=== PATIENT | male | born 1940 | race Caucasian/White ===

== ENCOUNTER 2017-06-14 13:00 | Observation (INO) | payer OTHER ==
[~2017-06-14] VITALS: Ht 177.8 cm; Wt 115.8 kg
[~2017-06-14 13:00] MED LIST changes: -ACET325 PO; -ALBU90OI INH; -AZIT500 PO; -GUAI600T33 PO; -METO50ER PO; -ONDA4ODT MM; -XARELTO20 MG PO
[2017-06-14] MEDS ORDERED: METO50ER PO (20:00)
[2017-06-15 05:06] LABS: BASOPHILS ABSOLUTE AUTO 0.02 K/mm3 (0.00-0.23); BASOPHILS PERCENT AUTO 0 % (0-2); EOSINOPHILS ABSOLUTE AUTO 0.06 K/mm3 (0.00-0.68); EOSINOPHILS PERCENT AUTO 1 % (0-6); Hematocrit 41.4 % (37.0-53.0); Hemoglobin 13.2 g/dL (13.5-17.5); IMMATURE GRAN ABSOLUTE AUTO 0.02 K/mm3 (0.00-0.10); IMMATURE GRAN PERCENT AUTO 0 % (0-1); LYMPHOCYTES ABSOLUTE AUTO 2.55 K/mm3 (0.84-5.20); LYMPHOCYTES PERCENT AUTO 55 % (21-46); MONOCYTES ABSOLUTE AUTO 0.57 K/mm3 (0.16-1.47); MONOCYTES PERCENT AUTO 12 % (4-13); Mean Corpuscular HGB 28.6 pg (26.0-34.0); Mean Corpuscular HGB Conc 31.9 g/dL (31.5-36.5); Mean Corpuscular Volume 90 fL (80-100); Mean Platelet Volume 10.1 fL (9.1-12.4); NEUTROPHILS ABSOLUTE AUTO 1.38 K/mm3 (1.96-9.15); NEUTROPHILS PERCENT AUTO 30 % (41-73); Platelet Count 117 K/mm3 (150-400); RDW Coefficient Variation 14.6 % (11.7-14.2); RDW Standard Deviation 47.8 fL (35.1-46.3); Red Blood Cell Count 4.62 M/mm3 (4.30-5.90)
[2017-06-15 05:30] LABS: Anion Gap 6 mmol/L (6-16); Blood Urea Nitrogen 39 mg/dL (8-24); Bun/Creatinine Ratio 36.4 (12.0-20.0); CO2, Blood 27 mmol/L (21-32); Chloride, Blood 105 mmol/L (98-108); Creatinine, Blood 1.07 mg/dL (0.60-1.20); Glomerular Filtration Rate >60 (60-); Glucose, Blood 98 mg/dL (70-99); Potassium, Blood 3.6 mmol/L (3.5-5.5); Sodium, Blood 138 mmol/L (136-145)
[2017-06-15] MEDS ORDERED: ACET325 PO (08:47)
[2017-06-15] MEDS ORDERED: XARELTO20 MG PO (08:48)
[2017-06-15] MEDS ORDERED: AZIT500 PO (08:48)
[2017-06-15] MEDS ORDERED: ONDA4ODT MM (08:49)
[2017-06-15] MEDS ORDERED: ALBU90OI INH (08:49)
[2017-06-15] MEDS ORDERED: GUAI600T33 PO (08:49)
== END 2017-06-15 09:36 | disposition home or self-care (01) ==
LOC: ER 13:00 → MEDS 13:01 → ENPENDDIS 06-15 08:30 → MEDS 06-15 09:36
PROVIDERS: Hospitalist
DX: J18.9 Pneumonia, unspecified organism (principal); J40 Bronchitis, not specified as acute or chronic; I10 Essential (primary) hypertension; G47.33 Obstructive sleep apnea (adult) (pediatric); E78.5 Hyperlipidemia, unspecified; I48.91 Unspecified atrial fibrillation; N17.9 Acute kidney failure, unspecified; C83.00 Small cell B-cell lymphoma, unspecified site; R73.9 Hyperglycemia, unspecified; R55 Syncope and collapse; I95.9 Hypotension, unspecified; Z79.899 Other long term (current) drug therapy; Z99.89 Dependence on other enabling machines and devices; Z96.652 Presence of left artificial knee joint; Z98.890 Other specified postprocedural states; Z87.891 Personal history of nicotine dependence
CPT/HCPCS: 36415; 71046; 80048; 80053; 83605; 83880; 84145; 84484; 85025; 87040; 96361; 96365; 96375; 99285; G0378; J0456; J0696; J7030; J7050

== ENCOUNTER → 2017-06-14 | Outpatient (CLI) | payer OTHER ==
[~2017-06-14] MED LIST: ACET325 PO; ALBU90OI INH; ALLO300 PO; AZIT500 PO; CHOL10002 PO; DABI150C PO; ERYT.5TO BOTHEYES; GUAI600T33 PO; HYDCHL25 PO; METO50 PO; METO50ER PO; ONDA4ODT MM; SIMV10 PO; TAMS.4ER PO; VALS80 PO; XARELTO20 MG PO
[2017-06-14 10:21] LABS: BASOPHILS ABSOLUTE AUTO 0.02 K/mm3 (0.00-0.23); BASOPHILS PERCENT AUTO 0 % (0-2); EOSINOPHILS PERCENT AUTO 2 % (0-6); Hematocrit 45.8 % (37.0-53.0); Hemoglobin 14.9 g/dL (13.5-17.5); IMMATURE GRAN ABSOLUTE AUTO 0.03 K/mm3 (0.00-0.10); IMMATURE GRAN PERCENT AUTO 1 % (0-1); LYMPHOCYTES PERCENT AUTO 44 % (21-46); MONOCYTES ABSOLUTE AUTO 0.81 K/mm3 (0.16-1.47); MONOCYTES PERCENT AUTO 13 % (4-13); Mean Corpuscular HGB 28.8 pg (26.0-34.0); Mean Corpuscular HGB Conc 32.5 g/dL (31.5-36.5); Mean Corpuscular Volume 88 fL (80-100); Mean Platelet Volume 10.5 fL (9.1-12.4); NEUTROPHILS ABSOLUTE AUTO 2.66 K/mm3 (1.96-9.15); NEUTROPHILS PERCENT AUTO 41 % (41-73); Platelet Count 131 K/mm3 (150-400); RDW Coefficient Variation 14.6 % (11.7-14.2); RDW Standard Deviation 47.2 fL (35.1-46.3); Red Blood Cell Count 5.18 M/mm3 (4.30-5.90); White Blood Cell Count 6.42 K/mm3 (4.00-11.30)
[2017-06-14 10:35] LABS: Alanine Aminotransfer (ALT/SGP 36 U/L (12-78); Albumin/Globulin Ratio 0.6 (0.8-1.8); Alk Phos 111 U/L (40-126); Anion Gap 6 mmol/L (6-16); Aspartate Aminotrans (AST/SGOT 40 U/L (12-37); Bilirubin, Total 0.9 mg/dL (0.1-1.0); Blood Urea Nitrogen 51 mg/dL (8-24); Bun/Creatinine Ratio 28.8 (12.0-20.0); CO2, Blood 31 mmol/L (21-32); Calcium, Blood 8.8 mg/dL (8.5-10.1); Chloride, Blood 98 mmol/L (98-108); Creatinine, Blood 1.77 mg/dL (0.60-1.20); Globulin, Blood 4.8 g/dL (2.2-4.0); Glomerular Filtration Rate 38 (60-); Glucose, Blood 174 mg/dL (70-99); Potassium, Blood 3.6 mmol/L (3.5-5.5); Sodium, Blood 135 mmol/L (136-145); Total Protein, Blood 7.8 g/dL (6.4-8.2)
[2017-06-14 10:36] LABS: Troponin I <0.017 ng/mL (0.000-0.040)
== END | disposition home or self-care (01) ==
LOC: LAB EV 10:17
PROVIDERS: General Practice
DX: I95.1 Orthostatic hypotension (principal)
CPT/HCPCS: 80053; 84484; 85025

== ENCOUNTER 2018-04-22 11:53 | Day surgery (SDC) | payer OTHER ==
[~2018-04-22] VITALS: Ht 177.8 cm; Wt 117.4 kg
[~2018-04-22 11:53] MED LIST changes: +ACET325 PO; +ALBU90OI INH; +AZIT500 PO; +Aspir 8181 MG PO; +B Complex #11 EACH PO; +GUAI600T33 PO; +Hydrochlorothia25 MG PO; +IRBE150 PO; +METO100ER PO; +METO50ER PO; +ONDA4ODT MM; +SENN187 PO; +Simvastatin20 MG PO; +VITAMIN D34000 UNIT PO; +XARELTO20 MG PO
== END 2018-04-22 13:50 | disposition home or self-care (01) ==
LOC: ORSCSDS 11:53
PROVIDERS: Surgery
PROC: 0DJD8ZZ Inspection of Lower Intestinal Tract, Via Natural or Artificial Opening Endoscopic (ICD-10-PCS; principal; 2018-04-22 13:00)
DX: Z12.11 Encounter for screening for malignant neoplasm of colon (principal); Z86.010 Personal history of colon polyps; I10 Essential (primary) hypertension; Z87.891 Personal history of nicotine dependence; G47.33 Obstructive sleep apnea (adult) (pediatric); Z79.899 Other long term (current) drug therapy
CPT/HCPCS: J2405; J7120

== ENCOUNTER → 2018-12-22 | Outpatient (CLI) | payer OTHER | LOC: PLD 14:26 → LAB SHORT 14:26 | DX: C44.319 Basal cell carcinoma of skin of other parts of face (principal); C44.519 Basal cell carcinoma of skin of other part of trunk | CPT/HCPCS: 88305 ==

== ENCOUNTER 2021-03-18 03:37 | Emergency (ER) | payer OTHER ==
[~2021-03-18] VITALS: Ht 177.8 cm; Wt 108.9 kg
[2021-03-18 04:49] LABS: Source, Urine Catheter
[2021-03-18 04:51] LABS: Bilirubin, Urine Neg (Neg); Blood, Urine 3+ (Neg); Glucose Qualitative, Urine Neg (Neg); Ketones, Urine Neg (Neg); Leukocyte Esterase, Urine Neg (Neg); Nitrite, Urine Neg (Neg); Protein, Urine Neg (Neg); Specific Gravity, Urine 1.015 (1.003-1.022); Urobilinogen, Urine NORM (Normal)
[2021-03-18 04:54] LABS: Appearance, Urine Clear (Clear); Color, Urine Yellow (P-Yellow)
[2021-03-18 05:24] LABS: Bacteria Not Seen /hpf; Squamous Epithelial Cells Not Seen /hpf (Few); White Blood Cells, Urine Not Seen /hpf (0-5)
== END 2021-03-18 05:55 | disposition home or self-care (01) ==
LOC: ER 03:37
PROVIDERS: Student in an Organized Health Care Education/Training Program
DX: R33.9 Retention of urine, unspecified (principal); I48.91 Unspecified atrial fibrillation; Z79.899 Other long term (current) drug therapy; Z87.891 Personal history of nicotine dependence
CPT/HCPCS: 51702; 51798; 81001; 99283-25

== ENCOUNTER 2021-05-07 22:10 | Emergency (ER) | payer OTHER ==
[~2021-05-07] VITALS: Ht 177.8 cm; Wt 108.9 kg
[2021-05-07 22:48] LABS: Source, Urine Voided
[2021-05-07 22:56] LABS: Bilirubin, Urine Neg (Neg); Blood, Urine 4+ (Neg); Glucose Qualitative, Urine Neg (Neg); Ketones, Urine Neg (Neg); Leukocyte Esterase, Urine Neg (Neg); Nitrite, Urine Neg (Neg); Protein, Urine 2+ (Neg); Urobilinogen, Urine NORM (Normal)
[2021-05-07 23:45] LABS: Appearance, Urine Clear (Clear); Color, Urine Yellow (P-Yellow)
[2021-05-08 00:09] LABS: Bacteria Mod /hpf; Hyaline Casts 0-2 /lpf (0-2); Squamous Epithelial Cells Rare /hpf (Few); White Blood Cells, Urine 0-2 /hpf (0-5)
== END 2021-05-07 23:57 | disposition home or self-care (01) ==
LOC: ER 22:10
PROVIDERS: Emergency Medicine
DX: N40.1 Benign prostatic hyperplasia with lower urinary tract symptoms (principal); R33.8 Other retention of urine; I48.91 Unspecified atrial fibrillation; Z79.899 Other long term (current) drug therapy
CPT/HCPCS: 51702; 51798; 81001; 87086; 99283-25

== ENCOUNTER 2021-06-06 07:47 | Day surgery (SDC) | payer OTHER ==
[~2021-06-06] VITALS: Ht 177.8 cm; Wt 112.1 kg
[2021-06-06] MEDS ORDERED: FINA5 PO (08:14)
[2021-06-06] MEDS ORDERED: MAGCHL64ER (08:15)
== END 2021-06-06 09:41 | disposition home or self-care (01) ==
LOC: ORSCSDS 07:47
PROVIDERS: Ophthalmology
PROC: 08RJ3JZ Replacement of Right Lens with Synthetic Substitute, Percutaneous Approach (ICD-10-PCS; principal; 2021-06-06 09:00)
DX: H25.11 Age-related nuclear cataract, right eye (principal); H21.81 Floppy iris syndrome; I10 Essential (primary) hypertension; K21.9 Gastro-esophageal reflux disease without esophagitis; I48.91 Unspecified atrial fibrillation; Z79.899 Other long term (current) drug therapy; E66.9 Obesity, unspecified; Z68.35 Body mass index [BMI] 35.0-35.9, adult
CPT/HCPCS: J2001; J2250; J3010; J3301; J7040; V2632

== ENCOUNTER → 2022-10-05 | Outpatient (CLI) | payer OTHER ==
[~2022-10-05] MED LIST changes: +FINA5 PO; +MAGCHL64ER
[2022-10-08 11:35] LABS: Stool Occult Blood Guaiac 1 Pos (Neg); Stool Occult Blood Guaiac 2 Pos (Neg)
[2022-10-08 11:37] LABS: Stool Occult Blood Guaiac 3 Neg (Neg)
== END ==
LOC: LAB 02:00 → LAB SHORT 02:00
PROVIDERS: Internal Medicine
DX: E61.1 Iron deficiency (principal)
CPT/HCPCS: 82270

== ENCOUNTER 2024-05-13 02:41 | Day surgery (SDC) | payer OTHER ==
[2024-05-13] VITALS (7 sets, daily range): BP systolic 81–106; BP diastolic 35–61
[2024-05-13] MEDS ORDERED: NS 250 ML IV SCH (06:50)
== END 2024-05-13 17:40 | disposition home or self-care (01) ==
LOC: ATC 02:41 → EDSTATUS 13:30 → ATC 13:30 → LAB FUT 05-12 12:55
DX: D50.9 Iron deficiency anemia, unspecified (principal); C83.80 Other non-follicular lymphoma, unspecified site; I10 Essential (primary) hypertension; G47.30 Sleep apnea, unspecified; I48.91 Unspecified atrial fibrillation; E78.5 Hyperlipidemia, unspecified; Z87.891 Personal history of nicotine dependence; Z79.82 Long term (current) use of aspirin; Z79.899 Other long term (current) drug therapy
CPT/HCPCS: 36415; 86850; 86900; 86901; 86923; J7050; P9016

== ENCOUNTER 2024-05-23 23:54 | Inpatient (IN) | payer OTHER ==
[~2024-05-23] VITALS: Ht 177.8 cm; Wt 104.3 kg
[2024-05-24] MEDS ORDERED: NS 1,000 ML IV ONE (00:13)
[2024-05-24 00:28] LABS: Hematocrit 18.5 % (37.0-53.0); Mean Corpuscular HGB 32.1 pg (26.0-34.0); Mean Corpuscular HGB Conc 31.9 g/dL (31.5-36.5); Mean Corpuscular Volume 101 fL (80-100); Mean Platelet Volume 9.4 fL (9.1-12.4); NRBC ABSOLUTE 0.09 K/mm3 (0.00-0.02); NRBC Auto 2.9 /100 WBC (0.0-0.2); Platelet Count 77 K/mm3 (150-400); RDW Coefficient Variation 21.9 % (11.7-14.2); RDW Standard Deviation 77.5 fL (35.1-46.3); Red Blood Cell Count 1.84 M/mm3 (4.30-5.90); White Blood Cell Count 3.15 K/mm3 (4.00-11.30)
[2024-05-24 00:30] LABS: Hemoglobin 5.9 g/dL (13.5-17.5)
[2024-05-24 00:40] LABS: Alanine Aminotransfer (ALT/SGP 11 U/L (12-78); Albumin, Blood 2.8 g/dL (3.4-5.0); Albumin/Globulin Ratio 0.7 (0.8-1.8); Alk Phos 108 U/L (50-136); Anion Gap 17 mmol/L (3-11); Aspartate Aminotrans (AST/SGOT 14 U/L (12-37); Blood Urea Nitrogen 38 mg/dL (8-24); Bun/Creatinine Ratio 19.9 (12.0-20.0); CO2, Blood 21 mmol/L (21-32); Calcium, Blood 8.6 mg/dL (8.5-10.1); Chloride, Blood 99 mmol/L (98-108); Creatinine, Blood 1.91 mg/dL (0.60-1.20); Globulin, Blood 4.3 g/dL (2.2-4.0); Glomerular Filtration Rate 35 (60-); Glucose, Blood 217 mg/dL (70-99); Potassium, Blood 4.1 mmol/L (3.5-5.5); Sodium, Blood 133 mmol/L (136-145); Total Protein, Blood 7.1 g/dL (6.4-8.2)
[2024-05-24] MEDS ORDERED: NS 1,000 ML IV SCH (00:45)
[2024-05-24 00:47] LABS: BASOPHILS PERCENT MAN 0 % (0-2); BLASTS PERCENT MAN 4 % (0-0); EOSINOPHILS PERCENT MAN 0 % (0-6); LYMPHOCYTES % ATYPICAL MANUAL 1 % (0-0); LYMPHOCYTES ABSOLUTE MAN 2.07 K/mm3 (0.84-5.20); LYMPHOCYTES PERCENT MAN 65 % (21-46); MONOCYTES ABSOLUTE MAN 0.28 K/mm3 (0.16-1.47); MONOCYTES PERCENT MAN 9 % (4-13); MYELOCYTE ABSOLUTE MAN 0.03 K/mm3 (0.00-0.00); MYELOCYTE PERCENT MAN 1 % (0-0); NEUTROPHILS ABSOLUTE MAN 0.63 K/mm3 (1.96-9.15); SEG NEUTROPHILS PERCENT MAN 20 % (41-73); TOTAL CELLS COUNTED 100
[2024-05-24 01:05] LABS: Salicylate <1.7 mg/dL (2.8-20.0)
[2024-05-24 01:10] LABS: Acetaminophen, Random <2.0 ug/mL (10.0-30.0)
[2024-05-24 02:05] LABS: Base Excess Venous 0.6 mmol/L; Bicarbonate Venous 24.9 mmol/L (24.0-30.0); PCO2 Venous 34.1 mmHg (38-42); pH Blood Venous 7.46 (7.34-7.37)
[2024-05-24] MEDS ORDERED: Metoclopramide HCl 5MG / ML 2ML Vial IV PRN (02:30)
[2024-05-24] MEDS ORDERED: FLU VACC TS2024-25(6MOS UP)/PF 45 MCG/0.5 ML SYRINGE IM ONE (02:30)
[2024-05-24] MEDS ORDERED: Lactated Ringer's 1,000 ML IV SCH (02:30)
[2024-05-24 03:33] LABS: International Normalized Ratio 1.21; Prothrombin Time Results 12.8 Sec (9.7-11.5)
[2024-05-24 05:12] LABS: Hematocrit 18.2 % (37.0-53.0); Mean Corpuscular HGB 33.3 pg (26.0-34.0); Mean Corpuscular HGB Conc 32.4 g/dL (31.5-36.5); Mean Corpuscular Volume 103 fL (80-100); NRBC ABSOLUTE 0.08 K/mm3 (0.00-0.02); NRBC Auto 3.5 /100 WBC (0.0-0.2); Platelet Count 69 K/mm3 (150-400); RDW Coefficient Variation 21.3 % (11.7-14.2); RDW Standard Deviation 74.6 fL (35.1-46.3); Red Blood Cell Count 1.77 M/mm3 (4.30-5.90); White Blood Cell Count 2.31 K/mm3 (4.00-11.30)
[2024-05-24 05:47] LABS: Hemoglobin 5.9 g/dL (13.5-17.5)
[2024-05-24 05:53] LABS: Magnesium, Blood 2.4 mg/dL (1.6-2.4)
[2024-05-24 05:54] LABS: Albumin, Blood 2.7 g/dL (3.4-5.0); Albumin/Globulin Ratio 0.6 (0.8-1.8); Bilirubin, Total 0.9 mg/dL (0.1-1.0); Bun/Creatinine Ratio 19.5 (12.0-20.0); Calcium, Blood 8.1 mg/dL (8.5-10.1); Creatinine, Blood 1.9 mg/dL (0.60-1.20); Globulin, Blood 4.3 g/dL (2.2-4.0); Phosphorus, Blood 4.4 mg/dL (2.5-4.9); Potassium, Blood 3.8 mmol/L (3.5-5.5)
[2024-05-24 05:55] LABS: BASOPHILS ABSOLUTE MAN 0.04 K/mm3 (0.00-0.23); BASOPHILS PERCENT MAN 2 % (0-2); BLASTS PERCENT MAN 3 % (0-0); EOSINOPHILS ABSOLUTE MAN 0.02 K/mm3 (0.00-0.68); EOSINOPHILS PERCENT MAN 1 % (0-6); LYMPHOCYTES % ATYPICAL MANUAL 2 % (0-0); LYMPHOCYTES ABSOLUTE MAN 1.47 K/mm3 (0.84-5.20); LYMPHOCYTES PERCENT MAN 62 % (21-46); MONOCYTES ABSOLUTE MAN 0.09 K/mm3 (0.16-1.47); MONOCYTES PERCENT MAN 4 % (4-13); SEG NEUTROPHILS PERCENT MAN 26 % (41-73); TOTAL CELLS COUNTED 100
[2024-05-24] MEDS ORDERED: Pantoprazole Sodium 40 MG Injection IV SCH (06:00)
[2024-05-24 08:20] LABS: Source, Urine Clean Catch
[2024-05-24 08:24] LABS: Appearance, Urine Clear (Clear); Bilirubin, Urine Neg (Neg); Blood, Urine Neg (Neg); Color, Urine Yellow (P-Yellow); Glucose Qualitative, Urine 4+ (Neg); Ketones, Urine Neg (Neg); Leukocyte Esterase, Urine Neg (Neg); Nitrite, Urine Neg (Neg); Protein, Urine 2+ (Neg); Urobilinogen, Urine NORM (Normal)
[2024-05-24 08:43] LABS: Bacteria Few /hpf; Mucus Mod (0-Heavy); Red Blood Cells, Urine 0-2 /hpf (0-2); Squamous Epithelial Cells Rare /hpf (Few); White Blood Cells, Urine 0-2 /hpf (0-5)
[2024-05-24 08:43] LABS: Hematocrit 21.5 % (37.0-53.0); Mean Corpuscular HGB Conc 32.6 g/dL (31.5-36.5); Mean Platelet Volume 8.8 fL (9.1-12.4); NRBC ABSOLUTE 0.07 K/mm3 (0.00-0.02); NRBC Auto 4.1 /100 WBC (0.0-0.2); Platelet Count 60 K/mm3 (150-400); RDW Coefficient Variation 19.5 % (11.7-14.2); RDW Standard Deviation 65.2 fL (35.1-46.3); Red Blood Cell Count 2.19 M/mm3 (4.30-5.90)
[2024-05-24 08:48] LABS: Mean Corpuscular Volume 98 fL (80-100)
[2024-05-24 09:05] LABS: BASOPHILS PERCENT MAN 0 % (0-2); BLASTS PERCENT MAN 4 % (0-0); EOSINOPHILS PERCENT MAN 0 % (0-6); LYMPHOCYTES % ATYPICAL MANUAL 2 % (0-0); LYMPHOCYTES ABSOLUTE MAN 1.12 K/mm3 (0.84-5.20); LYMPHOCYTES PERCENT MAN 64 % (21-46); MONOCYTES PERCENT MAN 6 % (4-13); MYELOCYTE ABSOLUTE MAN 0.03 K/mm3 (0.00-0.00); MYELOCYTE PERCENT MAN 2 % (0-0); NEUTROPHILS ABSOLUTE MAN 0.37 K/mm3 (1.96-9.15); SEG NEUTROPHILS PERCENT MAN 22 % (41-73); TOTAL CELLS COUNTED 50
[2024-05-24] MEDS ORDERED: VENCLEXTA100 MG PO (12:35)
[2024-05-24] MEDS ORDERED: ACYCLOVIR400 MG PO (12:36)
[2024-05-24] MEDS ORDERED: FLUC100 PO (12:37)
[2024-05-24] MEDS ORDERED: LEVOFLOXACIN50011 PO (12:37)
[2024-05-24] MEDS ORDERED: TORS10 PO (12:39)
[2024-05-24] MEDS ORDERED: ELIQUIS5 M2 PO (12:41)
[2024-05-24] MEDS ORDERED: VALSARTAN160 MG PO (12:42)
[2024-05-24 15:46] VITALS: BP 99/47
[2024-05-24 16:08] LABS: Hematocrit 22.5 % (37.0-53.0); Hemoglobin 7.3 g/dL (13.5-17.5); Mean Corpuscular HGB 32.3 pg (26.0-34.0); Mean Corpuscular HGB Conc 32.4 g/dL (31.5-36.5); Mean Corpuscular Volume 100 fL (80-100); Mean Platelet Volume 9.2 fL (9.1-12.4); NRBC ABSOLUTE 0.07 K/mm3 (0.00-0.02); NRBC Auto 4.6 /100 WBC (0.0-0.2); Platelet Count 63 K/mm3 (150-400); RDW Coefficient Variation 20.2 % (11.7-14.2); Red Blood Cell Count 2.26 M/mm3 (4.30-5.90); White Blood Cell Count 1.51 K/mm3 (4.00-11.30)
[2024-05-24 18:10] LABS: Adenovirus Not Detected (NOT DETECT); Bordetella pertussis Not Detected (NOT DETECT); Chlamydophila pneumoniae Not Detected (NOT DETECT); Coronavirus 229E Not Detected (NOT DETECT); Coronavirus HKU1 Not Detected (NOT DETECT); Coronavirus NL63 Not Detected (NOT DETECT); Coronavirus OC43 Not Detected (NOT DETECT); Human Metapneumovirus Not Detected (NOT DETECT); Human Rhinovirus/Enterovirus Not Detected (NOT DETECT); Influenza A/2009-H1 Not Detected (NOT DETECT); Influenza A/H1 Not Detected (NOT DETECT); Influenza A/H3 Not Detected (NOT DETECT); Influenza B Not Detected (NOT DETECT); Mycoplasma pneumoniae Not Detected (NOT DETECT); Parainfluenza Virus 1 Not Detected (NOT DETECT); Parainfluenza Virus 2 Not Detected (NOT DETECT); Parainfluenza Virus 3 Not Detected (NOT DETECT); Parainfluenza Virus 4 Not Detected (NOT DETECT); Respiratory Syncytial Virus Not Detected (NOT DETECT); SARS-Cov-2 (COVID-19), BioFire Not Detected (NOT DETECT)
[2024-05-24 19:51] VITALS: BP 105/63
--- NOTE | 2024-05-24 23:24 | NUR ---
PT TORE A SMALL PIECE OF HIS TOENAIL ON HIS LEFT GREAT TOE. IT WAS BLEEDING AND THE PIECE OF TOENAIL DID NOT COME ALL THE WAY OFF. TOE WAS CLEANED AND BANDAGED WITH TWO BANDAIDS.
[2024-05-24 23:46] VITALS: BP 95/61
[2024-05-25] VITALS (12 sets, daily range): BP systolic 86–113; BP diastolic 42–72
--- NOTE | 2024-05-25 03:58 | NUR ---
SHIFT SUMMARY 83 YR M ADMITTED ON 05/24/24. FULL CODE. NO ACUTE CHANGES THIS SHIFT. PT IS A&O X 4 AND CALLS APPROPRIATELY FOR ASSISTANCE. NO REPORTS OF BLOODY STOOL THIS SHIFT. OF 2299 PT IS TO ONLY HAVE WATER AND ICE. HE WILL GO NPO AT 1300 TODAY (05/25/24) IN PREPARATION FOR EGD AND COLONOSCOPY TODAY. BOWEL PREP WILL START AT 0700. NO C/O DIZZINESS OR SYNCOPE. NO CHEST PAIN OR SOB. WILL CONTINUE TO MONITOR. BED IN LOW POSITION AND CALL LIGHT IN REACH.
[2024-05-25 05:22] LABS: Hematocrit 21.2 % (37.0-53.0); Mean Corpuscular HGB 32.6 pg (26.0-34.0); Mean Corpuscular Volume 99 fL (80-100); Mean Platelet Volume 9.6 fL (9.1-12.4); NRBC ABSOLUTE 0.06 K/mm3 (0.00-0.02); NRBC Auto 4.5 /100 WBC (0.0-0.2); Platelet Count 58 K/mm3 (150-400); RDW Standard Deviation 67.4 fL (35.1-46.3); Red Blood Cell Count 2.15 M/mm3 (4.30-5.90); White Blood Cell Count 1.34 K/mm3 (4.00-11.30)
[2024-05-25 06:41] LABS: Albumin, Blood 2.4 g/dL (3.4-5.0); Anion Gap 13 mmol/L (3-11); Blood Urea Nitrogen 30 mg/dL (8-24); CO2, Blood 23 mmol/L (21-32); Calcium, Blood 8.3 mg/dL (8.5-10.1); Chloride, Blood 104 mmol/L (98-108); Creatinine, Blood 1.43 mg/dL (0.60-1.20); Glomerular Filtration Rate 49 (60-); Glucose, Blood 109 mg/dL (70-99); Magnesium, Blood 2.1 mg/dL (1.6-2.4); Potassium, Blood 3.9 mmol/L (3.5-5.5); Sodium, Blood 136 mmol/L (136-145)
[2024-05-25] MEDS ORDERED: Sodium, Potassium,Mag Sulfates 354 ML PO ONE (07:00)
[2024-05-25 12:35] LABS: Hematocrit 23.1 % (37.0-53.0); Hemoglobin 7.6 g/dL (13.5-17.5); Mean Corpuscular HGB 32.9 pg (26.0-34.0); Mean Corpuscular HGB Conc 32.9 g/dL (31.5-36.5); Mean Corpuscular Volume 100 fL (80-100); Mean Platelet Volume 9.4 fL (9.1-12.4); NRBC ABSOLUTE 0.05 K/mm3 (0.00-0.02); NRBC Auto 3.9 /100 WBC (0.0-0.2); Platelet Count 66 K/mm3 (150-400); RDW Coefficient Variation 20.3 % (11.7-14.2); RDW Standard Deviation 70.1 fL (35.1-46.3); Red Blood Cell Count 2.31 M/mm3 (4.30-5.90); White Blood Cell Count 1.28 K/mm3 (4.00-11.30)
[2024-05-25] MEDS ORDERED: EPLE25 PO (13:49)
[2024-05-25] MEDS ORDERED: FARXIGA10 MG PO (13:51)
[2024-05-25] MEDS ORDERED: FURO20 PO (13:51)
[2024-05-25] MEDS ORDERED: Sanctura20 MG PO (13:52)
[2024-05-25] MEDS ORDERED: Lactated Ringer's 1,000 ML IV SCH (15:55)
--- NOTE | 2024-05-25 17:03 | NUR ---
PT TRANSPORTED TO DAY SURGERY AT APPROX 1450 BY DAY SURGERY RN. PT A&OX4, VSS, AMB TO THE [facility], AND DENIED PAIN.
--- NOTE | 2024-05-25 17:05 | NUR ---
PT TRANSPORTED TO DAY SURGERY FOR PROCEDURE BY DAY SURGERY RN AT APPROX 1650. PT A&OX4, VSS, AMB TO THE [facility], AND DENIED PAIN. UPDATED AT BEDSIDE.
--- NOTE | 2024-05-25 18:25 | NUR ---
SHIFT SUMMARY PT A&OX4, AMB W/ ASSIST, AND DENIED PAIN. PT COMPLETED COLON PREP AND HAD EGD AND SCOPE. NO BLACK TARRY BM'S THIS SHIFT. PT BP LOW AND IMPROVED PRIOR TO PROCEDURE. PT WAS ASYMPTOMATIC. NO OTHER ACUTE CHANGES.
[2024-05-25] MEDS ORDERED: propofoL 60 ML IV ONE (18:29)
--- NOTE | 2024-05-25 19:02 | NUR ---
PT STILL IN DAY SURGERY AT THIS TIME. REPORT GIVEN TO CAUSTIC CRESYLATE SHIFT SUPERINTENDENT KEMAR HUDSON.
[2024-05-25] MEDS ORDERED: Phenylephrine HCl 100 MCG/ML-NS 10MLSYR (1MG/10ML) ONE (20:45)
[2024-05-25] MEDS ORDERED: NS 500 ML IV SCH (22:30)
[2024-05-26] VITALS (14 sets, daily range): BP systolic 94–118; BP diastolic 58–77
--- NOTE | 2024-05-26 00:14 | NUR ---
05/26/24 0014 Miguel Oliver MAC WITH YASIR FRANZ; SEE ANESTHESIA RECORDS.
--- NOTE | 2024-05-26 03:43 | NUR ---
SHIFT SUMMARY A&OX4, RETURNED FROM ENDOSCOPY AT 2119. DENIES PAIN, BPS SOFT BUT WITH ADEQUATE MAPPS. bpS HAVE SINCE IMPROVED. SKIN PALE,WARM,DRY. RECEIVED PLATELET INFUSION PER NEW ORDER AND TOLERATED VERY WELL. IVF OF LR AT 150 ML/HR RESUMED AFTER PLATELET TRANSFUSION COMPLETED, REMAINS ON TELEMETRY AND HAS BEEN IN A FIB WITH HR UPPER 90s W/ BRIEF HR OF 15O PER TELETECH X1 OVERNIGHT-WAS ASYMPTOMATIC/SLEEPING. VOIDING, NO BM SINCE RETURN FROM ENDOSCOPY OF YET & NO S/SX OF ANY BLEEDING.
--- NOTE | 2024-05-26 13:54 | NUR ---
TELE NOTIFIED THIS RN OF TWO EVENTS WHERE PT'S HR WENT UP INTO THE 150'S. PT ASYMPTOMATIC DURING BOTH EVENTS. THIS RN NOTIFIED . PROVIDER TO REVIEW HOME MEDS.
[2024-05-26] MEDS ORDERED: Metoprolol Succinate 50 MG TABCR PO SCH (14:00)
[2024-05-26 15:31] LABS: Hematocrit 20.7 % (37.0-53.0); Hemoglobin 6.7 g/dL (13.5-17.5); Mean Corpuscular HGB 32.7 pg (26.0-34.0); Mean Corpuscular HGB Conc 32.4 g/dL (31.5-36.5); Mean Corpuscular Volume 101 fL (80-100); Mean Platelet Volume 9.8 fL (9.1-12.4); NRBC ABSOLUTE 0.06 K/mm3 (0.00-0.02); NRBC Auto 6.2 /100 WBC (0.0-0.2); Platelet Count 76 K/mm3 (150-400); RDW Coefficient Variation 19.8 % (11.7-14.2); RDW Standard Deviation 69.8 fL (35.1-46.3); Red Blood Cell Count 2.05 M/mm3 (4.30-5.90)
[2024-05-26 15:38] LABS: White Blood Cell Count 0.97 K/mm3 (4.00-11.30)
--- NOTE | 2024-05-26 18:00 | NUR ---
THIS RN NOTIFIED OF BLOOD IN PT'S STOOL. PT ACTIVELY RECEIVING BLOOD TRANSFUSION CURRENTLY AND HAD SCOPE YESTERDAY. NO NEW ORDERS AT THIS TIME.
--- NOTE | 2024-05-26 19:10 | NUR ---
SHIFT SUMMARY PT HAD CRITICAL WBC THIS SHIFT, AWARE, SEE PREVIOUS NOTE. HGB 7.6 AND 1 UNIT ACTIVELY INFUSING PER ORDER. PT HAD BLOODY STOOL X1, AND NOTIFIED. NO TELE EVENTS AFTER METOPROLOL ADMINISTRATION. NO OTHER ACUTE CHANGES. CALL LIGHT WITHIN REACH AND PT ABLE TO MAKE NEEDS KNOWN.
[2024-05-26 20:17] LABS: HEPARIN ANTI-XA UNRACTIONATED >1.00 U/mL (0.35-0.70)
[2024-05-26] MEDS ORDERED: Acyclovir 400 MG Tab PO SCH (21:00)
[2024-05-27] VITALS (7 sets, daily range): BP systolic 90–110; BP diastolic 56–69
--- NOTE | 2024-05-27 05:21 | NUR ---
AAOX4. X1 ASSIST. USES CALL LIGHT APPROPRITATELY. TELE IN PLACE, AFIB. RA. C/O SOB, REPO WITH HOB ELEVATED, VSS. ORDER TO DC IV FLUIDS AND MONITOR. NO ACUTE NEEDS REST OF NIGHT. AWAITING BIOPSY RESULTS.
[2024-05-27 06:56] LABS: Hematocrit 22.1 % (37.0-53.0); Hemoglobin 7.4 g/dL (13.5-17.5); Mean Corpuscular HGB 32.9 pg (26.0-34.0); Mean Corpuscular HGB Conc 33.5 g/dL (31.5-36.5); Mean Corpuscular Volume 98 fL (80-100); Mean Platelet Volume 9.7 fL (9.1-12.4); NRBC ABSOLUTE 0.05 K/mm3 (0.00-0.02); NRBC Auto 4.5 /100 WBC (0.0-0.2); Platelet Count 73 K/mm3 (150-400); RDW Coefficient Variation 19.9 % (11.7-14.2); RDW Standard Deviation 68.7 fL (35.1-46.3); Red Blood Cell Count 2.25 M/mm3 (4.30-5.90); White Blood Cell Count 1.12 K/mm3 (4.00-11.30)
[2024-05-27 07:24] LABS: Magnesium, Blood 1.9 mg/dL (1.6-2.4)
[2024-05-27 07:32] LABS: Albumin, Blood 2.4 g/dL (3.4-5.0); Anion Gap 10 mmol/L (3-11); Blood Urea Nitrogen 18 mg/dL (8-24); Bun/Creatinine Ratio 16.8 (12.0-20.0); CO2, Blood 26 mmol/L (21-32); Calcium, Blood 8.5 mg/dL (8.5-10.1); Chloride, Blood 104 mmol/L (98-108); Creatinine, Blood 1.07 mg/dL (0.60-1.20); Glomerular Filtration Rate 69 (60-); Glucose, Blood 125 mg/dL (70-99); Phosphorus, Blood 2.9 mg/dL (2.5-4.9); Potassium, Blood 3.8 mmol/L (3.5-5.5); Sodium, Blood 136 mmol/L (136-145)
[2024-05-27] MEDS ORDERED: Eplerenone 25 MG Tab PO SCH (09:00)
[2024-05-27] MEDS ORDERED: Losartan Potassium 50 MG Tab PO SCH (09:00)
[2024-05-27 14:41] LABS: Hematocrit 23.4 % (37.0-53.0); Hemoglobin 7.6 g/dL (13.5-17.5)
--- NOTE | 2024-05-27 17:59 | NUR ---
SHIFT SUMMARY PT CONT LEVEL OF CARE. PT NOTED TO BE A&O X4 AND SBA WITH FWW. PT CONT WITH NEUTROPENIC PRECAUTIONS. PT REMAINS ON TELE NOTED TO BE AFIB HR 89 WITH PVC. PT HGB NOTED TO INCREASE FROM 7.4 TO 7.6. PLAN IS MONITOR HGB, WBC, PLT CONT AND POSSIBLE DC IN 1-2DAYS.
--- NOTE | 2024-05-27 19:26 | NUR ---
TELEMETRY CALLED TO NOTIFY NURSE THAT PT HR DIPPED DOWN IN TO 40S BUT THEN WENT BACK UP TO 60S. VS TAKEN AND WNL PT NOTED TO BE ASYMPTOMATIC. PHYSICAN NOTIFIED WITH NO NEW ORDERS AT THIS TIME.
--- NOTE | 2024-05-28 04:43 | NUR ---
SHIFT SUMMARY PATIENT COMPLAINED EARLY IN SHIFT OF STOMACH DISCOMFORT. REGLAN WAS ADMINISTERED AND DISCOMFORT WAS RELIEVED. PATIENT SLEPT INTERMITTANTLY THROUGHOUT THE NIGHT. HE IS ORIENTED X 4 AND HAS HIS CALL LIGHT WITHIN REACH. HIS BED ALARM IS SET. SAFETY PRECAUTIONS ARE BEING MAINTAINED.
[2024-05-28 06:00] VITALS: BP 91/61
[2024-05-28 06:46] LABS: Hematocrit 21.9 % (37.0-53.0); Hemoglobin 7.1 g/dL (13.5-17.5); Mean Corpuscular HGB 32.3 pg (26.0-34.0); Mean Corpuscular HGB Conc 32.4 g/dL (31.5-36.5); Mean Corpuscular Volume 100 fL (80-100); Mean Platelet Volume 8.9 fL (9.1-12.4); NRBC ABSOLUTE 0.05 K/mm3 (0.00-0.02); NRBC Auto 3.8 /100 WBC (0.0-0.2); Platelet Count 70 K/mm3 (150-400); RDW Coefficient Variation 19.7 % (11.7-14.2); RDW Standard Deviation 67.8 fL (35.1-46.3); White Blood Cell Count 1.32 K/mm3 (4.00-11.30)
[2024-05-28 07:03] LABS: Albumin, Blood 2.3 g/dL (3.4-5.0); Anion Gap 9 mmol/L (3-11); Blood Urea Nitrogen 19 mg/dL (8-24); Bun/Creatinine Ratio 15.1 (12.0-20.0); CO2, Blood 28 mmol/L (21-32); Calcium, Blood 8.3 mg/dL (8.5-10.1); Chloride, Blood 104 mmol/L (98-108); Creatinine, Blood 1.26 mg/dL (0.60-1.20); Glomerular Filtration Rate 57 (60-); Glucose, Blood 111 mg/dL (70-99); Magnesium, Blood 1.9 mg/dL (1.6-2.4); Phosphorus, Blood 3.1 mg/dL (2.5-4.9); Potassium, Blood 3.7 mmol/L (3.5-5.5); Sodium, Blood 137 mmol/L (136-145)
[2024-05-28 08:36] VITALS: BP 107/69
[2024-05-28] MEDS ORDERED: ONDA4 PO (10:19)
[2024-05-28] MEDS ORDERED: Furosemide 20 MG Tab PO SCH (12:00)
[2024-05-28 15:16] VITALS: BP 104/60
--- NOTE | 2024-05-28 18:20 | NUR ---
PT AOX3-4 AND COOPERATIVE OF CARE. PT IS A STANDBY WITH WALKER AND WILL USE URINAL. PT RESTING THROUGHOUT THE DAY AND ABLE TO MAKE NEEDS KNOWN WILL CONTINUE TO MONITOR CALL LIGHT IN REACH.
[2024-05-28 20:00] VITALS: BP 106/59
[2024-05-29 01:00] VITALS: BP 105/64
--- NOTE | 2024-05-29 03:28 | NUR ---
CHURCH WORKER SUMMARY: PT ADMITTED FOR SYNCOPE. NEUTROPENIC PRECAUTIONS IN PLACE. S/P LE[place]EMIA TX AND LOW WBC'S. PT A&O X3-4, MILD DELAY WITH ANSWERS TO QUESTIONS. PT HAS INCREASED IN CONFUSION NIGHT HAS PROGRESSED. PT NOTED TO IMPULSIVELY GET OOB AND GO TO BATHROOM WITHOUT ASSISTANCE / CALL LIGHT USE. PT EDUCATED SHANK PIECE TACKER LIGHT USE AND BED ALARM PLACED. PT DENIES PAIN T/O SHIFT. VSS. INDEPENDENT WITH BED MOBILITY. CALL LIGHT IN REACH. BED IN LOWEST POSITION. CARES CONTINUE ORDERED.
[2024-05-29 03:56] VITALS: BP 98/53
[2024-05-29 05:27] LABS: Hematocrit 24.6 % (37.0-53.0); Hemoglobin 7.8 g/dL (13.5-17.5); Mean Corpuscular HGB Conc 31.7 g/dL (31.5-36.5); Mean Corpuscular Volume 101 fL (80-100); Mean Platelet Volume 9.5 fL (9.1-12.4); NRBC ABSOLUTE 0.07 K/mm3 (0.00-0.02); NRBC Auto 4.4 /100 WBC (0.0-0.2); Platelet Count 73 K/mm3 (150-400); RDW Coefficient Variation 19.6 % (11.7-14.2); RDW Standard Deviation 67.6 fL (35.1-46.3); Red Blood Cell Count 2.44 M/mm3 (4.30-5.90); White Blood Cell Count 1.58 K/mm3 (4.00-11.30)
[2024-05-29 06:18] LABS: Albumin, Blood 2.6 g/dL (3.4-5.0); Anion Gap 11 mmol/L (3-11); Blood Urea Nitrogen 21 mg/dL (8-24); Bun/Creatinine Ratio 16.7 (12.0-20.0); CO2, Blood 26 mmol/L (21-32); Calcium, Blood 8.7 mg/dL (8.5-10.1); Chloride, Blood 103 mmol/L (98-108); Creatinine, Blood 1.26 mg/dL (0.60-1.20); Glomerular Filtration Rate 57 (60-); Glucose, Blood 115 mg/dL (70-99); Magnesium, Blood 1.8 mg/dL (1.6-2.4); Phosphorus, Blood 3.6 mg/dL (2.5-4.9); Potassium, Blood 3.9 mmol/L (3.5-5.5); Sodium, Blood 136 mmol/L (136-145)
[2024-05-29 07:56] VITALS: BP 100/67
[2024-05-29] MEDS ORDERED: OMEP20ER PO (11:49)
--- NOTE | 2024-05-29 13:10 | NUR ---
PT DISCHARGED AT 1230 AOX4 AND COOPERATIVE OF CARE. REVIEWED WITH PT AND HIS PACKET AND EDUCATIONAL MATERIAL. ALL PERSONAL ITEMS COLLECTED AND TAKEN WITH PT. NO DISTRESS NOTED. PT TRANSPORTED OUT TO [facility] VIA WHEEL CHAIR.
== END 2024-05-29 12:17 | disposition home or self-care (01) | DRG 378 ==
LOC: ER 23:54 → ERHOLD 23:55 → MEDS 05-24 15:11 → ERHOLD 05-24 15:11 → MEDS 05-24 15:45
PROVIDERS: Emergency Medicine; Family Medicine; Internal Medicine; ADMIT Internal Medicine
PROC: 0DBL8ZX Excision of Transverse Colon, Via Natural or Artificial Opening Endoscopic, Diagnostic (ICD-10-PCS; 2024-05-23)
PROC: 30233N1 Transfusion of Nonautologous Red Blood Cells into Peripheral Vein, Percutaneous Approach (ICD-10-PCS; 2024-05-23)
PROC: 0W3P8ZZ Control Bleeding in Gastrointestinal Tract, Via Natural or Artificial Opening Endoscopic (ICD-10-PCS; principal; 2024-05-26)
PROC: 0DBM8ZZ Excision of Descending Colon, Via Natural or Artificial Opening Endoscopic (ICD-10-PCS; 2024-05-26)
PROC: 0DBL8ZZ Excision of Transverse Colon, Via Natural or Artificial Opening Endoscopic (ICD-10-PCS; 2024-05-26)
PROC: 0DBN8ZZ Excision of Sigmoid Colon, Via Natural or Artificial Opening Endoscopic (ICD-10-PCS; 2024-05-26)
DX: K31.811 Angiodysplasia of stomach and duodenum with bleeding (principal); C34.90 Malignant neoplasm of unspecified part of unspecified bronchus or lung; D62 Acute posthemorrhagic anemia; C95.90 Leukemia, unspecified not having achieved remission; N17.9 Acute kidney failure, unspecified; D61.818 Other pancytopenia; I48.20 Chronic atrial fibrillation, unspecified; E87.20 Acidosis, unspecified; G93.40 Encephalopathy, unspecified; C92.00 Acute myeloblastic leukemia, not having achieved remission; C83.00 Small cell B-cell lymphoma, unspecified site; Z96.659 Presence of unspecified artificial knee joint; E86.0 Dehydration; E11.9 Type 2 diabetes mellitus without complications; D70.9 Neutropenia, unspecified; K63.5 Polyp of colon; N18.30 Chronic kidney disease, stage 3 unspecified; I12.9 Hypertensive chronic kidney disease with stage 1 through stage 4 chronic kidney disease, or unspecified chronic kidney disease; K64.4 Residual hemorrhoidal skin tags; E75.5 Other lipid storage disorders; Z79.899 Other long term (current) drug therapy; Z87.19 Personal history of other diseases of the digestive system; Z87.891 Personal history of nicotine dependence; Z79.01 Long term (current) use of anticoagulants; Z51.11 Encounter for antineoplastic chemotherapy
CPT/HCPCS: 0202U; 36415; 36430; 70450; 71045; 71260; 74177; 80053; 80069; 81001; 82140; 82378; 82803; 82947; 83605; 83735; 84100; 85014; 85018; 85025; 85027; 85520; 85610; 85730; 86850; 86900; 86901; 86923; 88305; 93005; 93010; 96374; 99285-25; A9270; G0378; G0480; J2371; J2470; J2704; J2765; J7030; J7040; J7120; P9016; P9035; Q9967

== ENCOUNTER → 2024-05-30 | Outpatient (CLI) | payer OTHER ==
[~2024-05-30] MED LIST changes: +ACYCLOVIR400 MG PO; +ELIQUIS5 M2 PO; +EPLE25 PO; +FARXIGA10 MG PO; +FLUC100 PO; +FURO20 PO; +LEVOFLOXACIN50011 PO; +OMEP20ER PO; +ONDA4 PO; +Sanctura20 MG PO; +TORS10 PO; +VALSARTAN160 MG PO; +VENCLEXTA100 MG PO
[2024-05-30 14:44] LABS: Hematocrit 20.9 % (37.0-53.0); Hemoglobin 7.1 g/dL (13.5-17.5); Mean Corpuscular Volume 100 fL (80-100); Mean Platelet Volume 9.4 fL (9.1-12.4); NRBC ABSOLUTE 0.04 K/mm3 (0.00-0.02); NRBC Auto 3.3 /100 WBC (0.0-0.2); Platelet Count 65 K/mm3 (150-400); RDW Coefficient Variation 19.9 % (11.7-14.2); Red Blood Cell Count 2.09 M/mm3 (4.30-5.90); White Blood Cell Count 1.21 K/mm3 (4.00-11.30)
[2024-05-30 15:34] LABS: BASOPHILS PERCENT MAN 0 % (0-2); BLASTS PERCENT MAN 6 % (0-0); EOSINOPHILS ABSOLUTE MAN 0.02 K/mm3 (0.00-0.68); EOSINOPHILS PERCENT MAN 2 % (0-6); LYMPHOCYTES ABSOLUTE MAN 0.88 K/mm3 (0.84-5.20); LYMPHOCYTES PERCENT MAN 73 % (21-46); MONOCYTES ABSOLUTE MAN 0.02 K/mm3 (0.16-1.47); MONOCYTES PERCENT MAN 2 % (4-13); SEG NEUTROPHILS PERCENT MAN 17 % (41-73); TOTAL CELLS COUNTED 100
[2024-05-30 20:53] LABS: Albumin, Blood 2.3 g/dL (3.4-5.0); Albumin/Globulin Ratio 0.6 (0.8-1.8); Bilirubin, Total 1.4 mg/dL (0.1-1.0); Calcium, Blood 7.4 mg/dL (8.5-10.1); Creatinine, Blood 1.07 mg/dL (0.60-1.20); Globulin, Blood 3.8 g/dL (2.2-4.0); Potassium, Blood 3.6 mmol/L (3.5-5.5); Total Protein, Blood 6.1 g/dL (6.4-8.2)
== END ==
LOC: LAB 14:22 → LAB SHORT 14:22
PROVIDERS: Internal Medicine Hematology & Oncology
DX: C92.00 Acute myeloblastic leukemia, not having achieved remission (principal); C83.80 Other non-follicular lymphoma, unspecified site
CPT/HCPCS: 80053; 85025

== ENCOUNTER 2024-06-02 02:31 | Day surgery (SDC) | payer OTHER ==
[2024-06-02] VITALS (7 sets, daily range): BP systolic 68–112; BP diastolic 43–76
[2024-06-02] MEDS ORDERED: NS 250 ML IV SCH (06:55)
== END 2024-06-02 17:42 ==
LOC: ATC 02:31 → LAB FUT 05-19 14:00 → EDSTATUS 05-19 14:00
DX: C92.00 Acute myeloblastic leukemia, not having achieved remission (principal); C83.80 Other non-follicular lymphoma, unspecified site; I10 Essential (primary) hypertension; G47.30 Sleep apnea, unspecified; I48.91 Unspecified atrial fibrillation; E78.5 Hyperlipidemia, unspecified; Z87.891 Personal history of nicotine dependence; Z79.82 Long term (current) use of aspirin; Z79.899 Other long term (current) drug therapy
CPT/HCPCS: 36415; 36430; 86850; 86900; 86901; 86923; J7050; P9016

== ENCOUNTER 2024-07-07 04:07 | Day surgery (SDC) | payer OTHER ==
[2024-07-05 09:01] LABS: Hematocrit 22.1 % (37.0-53.0); Hemoglobin 7.4 g/dL (13.5-17.5); Mean Corpuscular HGB 31.9 pg (26.0-34.0); Mean Corpuscular HGB Conc 33.5 g/dL (31.5-36.5); Mean Corpuscular Volume 95 fL (80-100); Mean Platelet Volume 9.9 fL (9.1-12.4); Platelet Count 186 K/mm3 (150-400); RDW Coefficient Variation 18.5 % (11.7-14.2); RDW Standard Deviation 59.7 fL (35.1-46.3); Red Blood Cell Count 2.32 M/mm3 (4.30-5.90)
[2024-07-05 09:04] LABS: BASOPHILS PERCENT AUTO 0 % (0-2); EOSINOPHILS ABSOLUTE AUTO 0.02 K/mm3 (0.00-0.68); EOSINOPHILS PERCENT AUTO 2 % (0-6); IMMATURE GRAN PERCENT AUTO 0 % (0-1); LYMPHOCYTES ABSOLUTE AUTO 0.61 K/mm3 (0.84-5.20); LYMPHOCYTES PERCENT AUTO 66 % (21-46); MONOCYTES PERCENT AUTO 11 % (4-13); NEUTROPHILS PERCENT AUTO 21 % (41-73)
[2024-07-05 09:06] LABS: White Blood Cell Count 0.93 K/mm3 (4.00-11.30)
[2024-07-05 09:26] LABS: BASOPHILS PERCENT MAN 0 % (0-2); EOSINOPHILS ABSOLUTE MAN 0.03 K/mm3 (0.00-0.68); EOSINOPHILS PERCENT MAN 4 % (0-6); LYMPHOCYTES ABSOLUTE MAN 0.59 K/mm3 (0.84-5.20); LYMPHOCYTES PERCENT MAN 64 % (21-46); MONOCYTES ABSOLUTE MAN 0.07 K/mm3 (0.16-1.47); MONOCYTES PERCENT MAN 8 % (4-13); NEUTROPHILS ABSOLUTE MAN 0.22 K/mm3 (1.96-9.15); SEG NEUTROPHILS PERCENT MAN 24 % (41-73); TOTAL CELLS COUNTED 25
[2024-07-07] MEDS ORDERED: NS 250 ML IV SCH (06:55)
[2024-07-07 13:33] VITALS: BP 103/59
[2024-07-07 13:53] VITALS: BP 92/44
[2024-07-07 14:56] VITALS: BP 88/49
[2024-07-07 15:30] VITALS: BP 90/71
== END 2024-07-07 15:35 | disposition home or self-care (01) ==
LOC: ATC 04:07
PROVIDERS: Internal Medicine Hematology & Oncology
DX: C92.00 Acute myeloblastic leukemia, not having achieved remission (principal); C83.80 Other non-follicular lymphoma, unspecified site; I10 Essential (primary) hypertension; E78.5 Hyperlipidemia, unspecified; I48.91 Unspecified atrial fibrillation; G47.30 Sleep apnea, unspecified; Z87.891 Personal history of nicotine dependence; Z79.01 Long term (current) use of anticoagulants; Z79.899 Other long term (current) drug therapy
CPT/HCPCS: 36415; 36430; 85025; 86850; 86900; 86901; 86923; J7050; P9016

== ENCOUNTER 2024-07-14 02:10 | Day surgery (SDC) | payer OTHER ==
[2024-07-14] MEDS ORDERED: NS 250 ML IV SCH (06:50)
[2024-07-14 13:44] VITALS: BP 104/66
[2024-07-14 14:04] VITALS: BP 90/48
[2024-07-14 15:05] VITALS: BP 96/45
[2024-07-14 15:25] VITALS: BP 96/45
[2024-07-14 15:50] VITALS: BP 91/51
[2024-07-14 16:51] VITALS: BP 96/53
== END 2024-07-14 17:15 | disposition home or self-care (01) ==
LOC: ATC 02:10
DX: C92.00 Acute myeloblastic leukemia, not having achieved remission (principal); C83.80 Other non-follicular lymphoma, unspecified site; I10 Essential (primary) hypertension; G47.30 Sleep apnea, unspecified; I48.91 Unspecified atrial fibrillation; E78.5 Hyperlipidemia, unspecified; Z87.891 Personal history of nicotine dependence; Z79.01 Long term (current) use of anticoagulants; Z79.84 Long term (current) use of oral hypoglycemic drugs; Z79.899 Other long term (current) drug therapy
CPT/HCPCS: 36430; 86850; 86900; 86901; 86923; J7050; P9016

== ENCOUNTER 2024-09-02 00:06 | Day surgery (SDC) | payer OTHER ==
[2024-09-02] MEDS ORDERED: NS 250 ML IV SCH (07:10)
[2024-09-02 13:29] VITALS: BP 99/60
[2024-09-02 13:48] VITALS: BP 101/59
[2024-09-02 14:49] VITALS: BP 102/53
[2024-09-02 15:29] VITALS: BP 99/50
[2024-09-02 16:30] VITALS: BP 111/57
== END 2024-09-02 16:53 | disposition home or self-care (01) ==
LOC: ATC 00:06
DX: C92.00 Acute myeloblastic leukemia, not having achieved remission (principal); C83.80 Other non-follicular lymphoma, unspecified site; E78.5 Hyperlipidemia, unspecified; I49.1 Atrial premature depolarization; I10 Essential (primary) hypertension; Z79.899 Other long term (current) drug therapy
CPT/HCPCS: 36415; 36430; 86850; 86900; 86901; 86923; J7050; P9016

== ENCOUNTER 2024-10-07 01:32 | Day surgery (SDC) | payer OTHER ==
[2024-10-07] VITALS (7 sets, daily range): BP systolic 95–112; BP diastolic 50–81
[2024-10-07] MEDS ORDERED: NS 250 ML IV SCH (07:05)
== END 2024-10-07 23:00 | disposition home or self-care (01) ==
LOC: ATC 01:32
DX: C92.00 Acute myeloblastic leukemia, not having achieved remission (principal); C83.80 Other non-follicular lymphoma, unspecified site; I10 Essential (primary) hypertension; G47.30 Sleep apnea, unspecified; I48.91 Unspecified atrial fibrillation; E78.5 Hyperlipidemia, unspecified; Z87.891 Personal history of nicotine dependence; Z79.01 Long term (current) use of anticoagulants; Z79.899 Other long term (current) drug therapy
CPT/HCPCS: 36415; 36430; 86850; 86900; 86901; 86923; J7050; P9016

== ENCOUNTER → 2024-10-20 | Outpatient (CLI) | payer OTHER ==
[2024-10-20 12:07] LABS: Hematocrit 23.0 % (37.0-53.0); Hemoglobin 7.7 g/dL (13.5-17.5); Mean Corpuscular HGB Conc 33.5 g/dL (31.5-36.5); Mean Corpuscular Volume 99 fL (80-100); NRBC ABSOLUTE 0.03 K/mm3 (0.00-0.02); NRBC Auto 2.1 /100 WBC (0.0-0.2); Platelet Count 226 K/mm3 (150-400); RDW Coefficient Variation 20.2 % (11.7-14.2); RDW Standard Deviation 71.6 fL (35.1-46.3)
[2024-10-20 12:26] LABS: Alanine Aminotransfer (ALT/SGP 10.0 U/L (12-78); Albumin, Blood 2.6 g/dL (3.4-5.0); Albumin/Globulin Ratio 0.6 (0.8-1.8); Anion Gap 7.0 mmol/L (3-11); Aspartate Aminotrans (AST/SGOT 19.0 U/L (12-37); Bilirubin, Total 1.5 mg/dL (0.1-1.0); Blood Urea Nitrogen 28.0 mg/dL (8-24); CO2, Blood 30.0 mmol/L (21-32); Calcium, Blood 9.1 mg/dL (8.5-10.1); Chloride, Blood 99.0 mmol/L (98-108); Creatinine, Blood 0.86 mg/dL (0.60-1.20); Globulin, Blood 4.3 g/dL (2.2-4.0); Glucose, Blood 137.0 mg/dL (70-99); Potassium, Blood 4.0 mmol/L (3.5-5.5); Sodium, Blood 132.0 mmol/L (136-145); Total Protein, Blood 6.9 g/dL (6.4-8.2)
[2024-10-20 14:18] LABS: BAND PERCENT MAN 12 % (0-8); BASOPHILS ABSOLUTE MAN 0.00 K/mm3 (0.00-0.23); BASOPHILS PERCENT MAN 0 % (0-2); EOSINOPHILS ABSOLUTE MAN 0.05 K/mm3 (0.00-0.68); EOSINOPHILS PERCENT MAN 4 % (0-6); LYMPHOCYTES ABSOLUTE MAN 0.28 K/mm3 (0.84-5.20); LYMPHOCYTES PERCENT MAN 20 % (21-46); MONOCYTES ABSOLUTE MAN 0.16 K/mm3 (0.16-1.47); MONOCYTES PERCENT MAN 12 % (4-13); NEUTROPHILS ABSOLUTE MAN 0.89 K/mm3 (1.96-9.15); SEG NEUTROPHILS PERCENT MAN 52 % (41-73)
== END ==
LOC: LAB 12:02 → LAB SHORT 12:02
PROVIDERS: Nurse Practitioner
DX: C92.00 Acute myeloblastic leukemia, not having achieved remission (principal); C83.80 Other non-follicular lymphoma, unspecified site
CPT/HCPCS: 80053; 85025

== ENCOUNTER 2024-11-01 18:41 | Inpatient (IN) | payer OTHER ==
[~2024-11-01] VITALS: Ht 177.8 cm; Wt 87.2 kg
[2024-11-01] MEDS ORDERED: Diltiazem HCl 5 MG / ML 5ML Vial IV ONE ×2 (19:05→20:25)
[2024-11-01] MEDS ORDERED: NS 1,000 ML IV SCH (19:05)
[2024-11-01 19:56] LABS: Hematocrit 23.6 % (37.0-53.0); Hemoglobin 7.7 g/dL (13.5-17.5); Mean Corpuscular HGB Conc 32.6 g/dL (31.5-36.5); Mean Corpuscular Volume 102 fL (80-100); NRBC ABSOLUTE 0.10 K/mm3 (0.00-0.02); NRBC Auto 20.8 /100 WBC (0.0-0.2); Platelet Count 102 K/mm3 (150-400); RDW Coefficient Variation 21.6 % (11.7-14.2); RDW Standard Deviation 75.7 fL (35.1-46.3)
[2024-11-01 19:57] LABS: BASOPHILS ABSOLUTE AUTO 0.01 K/mm3 (0.00-0.23); BASOPHILS PERCENT AUTO 2 % (0-2); EOSINOPHILS ABSOLUTE AUTO 0.00 K/mm3 (0.00-0.68); EOSINOPHILS PERCENT AUTO 0 % (0-6); IMMATURE GRAN ABSOLUTE AUTO 0.02 K/mm3 (0.00-0.10); IMMATURE GRAN PERCENT AUTO 4 % (0-1); LYMPHOCYTES ABSOLUTE AUTO 0.26 K/mm3 (0.84-5.20); LYMPHOCYTES PERCENT AUTO 54 % (21-46); MONOCYTES ABSOLUTE AUTO 0.06 K/mm3 (0.16-1.47); MONOCYTES PERCENT AUTO 13 % (4-13); NEUTROPHILS ABSOLUTE AUTO 0.13 K/mm3 (1.96-9.15); NEUTROPHILS PERCENT AUTO 27 % (41-73)
[2024-11-01 20:14] LABS: Anion Gap 15.0 mmol/L (3-11); Blood Urea Nitrogen 22.0 mg/dL (8-24); CO2, Blood 23.0 mmol/L (21-32); Calcium, Blood 8.4 mg/dL (8.5-10.1); Chloride, Blood 99.0 mmol/L (98-108); Creatinine, Blood 0.7 mg/dL (0.60-1.20); Glucose, Blood 110.0 mg/dL (70-99); Magnesium, Blood 1.6 mg/dL (1.6-2.4); Potassium, Blood 3.7 mmol/L (3.5-5.5); Sodium, Blood 133.0 mmol/L (136-145); Thyroid Stimulating Hormone 5.68 uIU/mL (0.360-4.800)
[2024-11-01 20:28] LABS: Source, Urine Clean Catch
[2024-11-01 20:30] LABS: Bilirubin, Urine Neg (Neg); Color, Urine Yellow (P-Yellow); Glucose Qualitative, Urine 4+ (Neg); Ketones, Urine 4+ (Neg); Leukocyte Esterase, Urine Neg (Neg); Protein, Urine 1+ (Neg); Specific Gravity, Urine 1.015 (1.003-1.022); Urobilinogen, Urine 1+ (Normal)
[2024-11-01] MEDS ORDERED: Ondansetron HCl 2 MG / ML 2ML Vial IV PRN (23:00)
[2024-11-01] MEDS ORDERED: Magnesium Sulf 2 GM/Water 50ML 50 ML IV ONE (23:05)
[2024-11-02] VITALS (12 sets, daily range): BP systolic 88–120; BP diastolic 46–88
[2024-11-02] MEDS ORDERED: Cefepime HCl 2,000 MG in NS 100 ML IV SCH (02:43)
--- NOTE | 2024-11-02 07:14 | NUR ---
PT ARRIVED TO FLOOR FROM ED. VSS STABLE ON ROOM AIR. BED ALARM ON. BED LOCKED AND IN LOWEST POSITION. HEART RATE REMAINED STABLE DURING SHIFT. CARDIZEM NOT STARTED DUE TO PT'S HEART RATE BEING STABLE.
[2024-11-02] MEDS ORDERED: Polyethylene Glycol 3350 17 gm PO PRN (07:45)
[2024-11-02 07:48] LABS: Hematocrit 19.6 % (37.0-53.0); Hemoglobin 6.4 g/dL (13.5-17.5); Mean Corpuscular HGB Conc 32.7 g/dL (31.5-36.5); Mean Corpuscular Volume 102 fL (80-100); NRBC ABSOLUTE 0.06 K/mm3 (0.00-0.02); NRBC Auto 10.5 /100 WBC (0.0-0.2); Platelet Count 86 K/mm3 (150-400); RDW Coefficient Variation 21.9 % (11.7-14.2); RDW Standard Deviation 75.6 fL (35.1-46.3)
[2024-11-02] MEDS ORDERED: ELIQUIS5 M2 PO (08:04)
[2024-11-02] MEDS ORDERED: LEVFLO500 PO (08:05)
[2024-11-02] MEDS ORDERED: FARXIGA10 MG PO (08:06)
[2024-11-02 08:11] LABS: BASOPHILS ABSOLUTE MAN 0.02 K/mm3 (0.00-0.23); BASOPHILS PERCENT MAN 4 % (0-2); EOSINOPHILS ABSOLUTE MAN 0.02 K/mm3 (0.00-0.68); EOSINOPHILS PERCENT MAN 4 % (0-6); LYMPHOCYTES ABSOLUTE MAN 0.43 K/mm3 (0.84-5.20); LYMPHOCYTES PERCENT MAN 76 % (21-46); MONOCYTES ABSOLUTE MAN 0.06 K/mm3 (0.16-1.47); MONOCYTES PERCENT MAN 12 % (4-13); NEUTROPHILS ABSOLUTE MAN 0.02 K/mm3 (1.96-9.15); SEG NEUTROPHILS PERCENT MAN 4 % (41-73)
[2024-11-02 08:20] LABS: Alanine Aminotransfer (ALT/SGP 9.0 U/L (12-78); Albumin, Blood 2.1 g/dL (3.4-5.0); Albumin/Globulin Ratio 0.6 (0.8-1.8); Anion Gap 12.0 mmol/L (3-11); Aspartate Aminotrans (AST/SGOT 12.0 U/L (12-37); Bilirubin, Total 1.3 mg/dL (0.1-1.0); Blood Urea Nitrogen 19.0 mg/dL (8-24); CO2, Blood 24.0 mmol/L (21-32); Calcium, Blood 7.4 mg/dL (8.5-10.1); Chloride, Blood 102.0 mmol/L (98-108); Creatinine, Blood 0.79 mg/dL (0.60-1.20); Globulin, Blood 3.8 g/dL (2.2-4.0); Glucose, Blood 103.0 mg/dL (70-99); Magnesium, Blood 1.8 mg/dL (1.6-2.4); Potassium, Blood 3.7 mmol/L (3.5-5.5); Sodium, Blood 134.0 mmol/L (136-145); Total Protein, Blood 5.9 g/dL (6.4-8.2)
[2024-11-02] MEDS ORDERED: Lactobacil 2-S.Thermo-Bifido 1 1 Cap PO SCH (09:00)
[2024-11-02] MEDS ORDERED: Enoxaparin 40 MG/0.4 ML SYR SC SCH (09:00)
--- NOTE | 2024-11-02 13:34 | NUR ---
SHIFT NOTE: PATIENT IS STILL A/O X 3 ABLE TO MAKE NEEDS KNOWN, HOWEVER IS A POOR HISTORIAN, DEFERS TO FOR MOST HISTORY AND COMPLEX DECISIONS, BLADDERS SCAN AT 158, DIMINISHED URINE OUTPUT VOIDING FREQUENT 50-75mL AT A TIME, DENIES DISCOMFORT, DENEIS CHEST PAIN PRESSURE OR SOB AT REST. DYSPNIC WITH EXERTION, HR UPTO THE 130'S WITH MINIMAL EXERTION. RECOVERS AND HR 90-110'S AT REST. PATIENT HAS WORKED WITH PT/OT/ST, CASE MANAGEMENT AND PALLIATIVE CARE HAVE NOW SEEN. ADDITIONALLY, DR. OWENS ROUNDED AND ORDERED MEDS AND RBC'S. PINK TOP DRAWN AWAITING RESULTS. AT BEDSIDE FOR ALL OF THIS AND EDUCATED ON PLAN OF CARE WELL PATIENT. NO ACUTE CONCERNS. DECREASED APPETITE NOTED.
[2024-11-02] MEDS ORDERED: NS 500 ML IV SCH (15:10)
--- NOTE | 2024-11-02 15:13 | NUR ---
MET WITH PATIENT AND SPOUSE. DISCUSSED CODE STATUS. COMPLETED A POLST WITH PATIENT AND . AFTER REVIEWING OPTIONS THEY SELECTED DNR AND COMFORT. WE DISCUSSED HOSPICE. THEY RELAYED THAT DR. OWENS HAD BEEN IN EARLIER AND GAVE THAT AN OPTION, THEY WOULD LIKE THE OPPORTUNITY TO DISCUSS WITH FAMILY BEFORE THEY MAKE ANY DECISION ON THAT.
[2024-11-02] MEDS ORDERED: Docusate Sodium/Senna 1 Tab PO SCH (21:00)
[2024-11-03] VITALS (14 sets, daily range): BP systolic 87–128; BP diastolic 51–78
[2024-11-03 03:45] LABS: Hematocrit 23.0 % (37.0-53.0); Hemoglobin 7.8 g/dL (13.5-17.5); Mean Corpuscular HGB Conc 33.9 g/dL (31.5-36.5); NRBC ABSOLUTE 0.08 K/mm3 (0.00-0.02); NRBC Auto 20.5 /100 WBC (0.0-0.2); Platelet Count 70 K/mm3 (150-400); RDW Coefficient Variation 21.2 % (11.7-14.2); RDW Standard Deviation 68.1 fL (35.1-46.3)
[2024-11-03 03:49] LABS: Mean Corpuscular Volume 97 fL (80-100)
[2024-11-03 04:25] LABS: BASOPHILS ABSOLUTE MAN 0.00 K/mm3 (0.00-0.23); BASOPHILS PERCENT MAN 0 % (0-2); EOSINOPHILS ABSOLUTE MAN 0.00 K/mm3 (0.00-0.68); EOSINOPHILS PERCENT MAN 0 % (0-6); LYMPHOCYTES ABSOLUTE MAN 0.39 K/mm3 (0.84-5.20); LYMPHOCYTES PERCENT MAN 100 % (21-46); MONOCYTES ABSOLUTE MAN 0.00 K/mm3 (0.16-1.47); MONOCYTES PERCENT MAN 0 % (4-13)
--- NOTE | 2024-11-03 06:23 | NUR ---
PT HAS BEEN RESTLESS THROUGHOUT THE NIGHT. PT HAS BEEN VERY IMPULSIVE D/T URGENCY TO VOID. PT PULLED OUT RIGHT IV ACCESS BECAUSE "IT FELT LIKE THE RIGHT THING TO DO AT THE TIME." IV ACCESS WAS REPLACED IN RIGHT FOREARM. PT WAS VERY APOLOGETIC. BED LINEN AND GOWN WERE CHANGED. VITAL SIGNS HAVE BEEN STABLE THROUGH THE NIGHT. BED IS LOCKED AND IN LOWEST POSITION. BED ALARM IS ACTIVATED.
[2024-11-03 06:54] LABS: Albumin, Blood 1.9 g/dL (3.4-5.0); Anion Gap 9 mmol/L (3-11); Blood Urea Nitrogen 19 mg/dL (8-24); CO2, Blood 24 mmol/L (21-32); Calcium, Blood 7.6 mg/dL (8.5-10.1); Chloride, Blood 104 mmol/L (98-108); Creatinine, Blood 0.71 mg/dL (0.60-1.20); Glucose, Blood 137 mg/dL (70-99); Magnesium, Blood 1.7 mg/dL (1.6-2.4); Phosphorus, Blood 2.7 mg/dL (2.5-4.9); Potassium, Blood 3.5 mmol/L (3.5-5.5); Sodium, Blood 133 mmol/L (136-145)
[2024-11-03] MEDS ORDERED: Mag Sulfate 1 GM/D5% 100ML 100 ML IV STA (08:10)
--- NOTE | 2024-11-03 16:26 | NUR ---
CASE CONFRENCE WITH CARE COORDINATION. PATIENTS WAS NOT AT BEDSIDE AT THIS TIME. WILL FOLLOW UP TOMORROW
[2024-11-03 18:36] LABS: Hematocrit 26.1 % (37.0-53.0); Hemoglobin 8.5 g/dL (13.5-17.5)
--- NOTE | 2024-11-03 18:46 | NUR ---
EOS: NO SIGNIFICANT CHANGES T/O THE SHIFT PATIENT STIL IS A/O X 2-3 MOSTLY IMPULSIVE BUT CAN USE THE CALL LIGHT OR YELLS OUT AT TIMES FOR HELP. PATIENT DENIES CHEST PAIN PRESSURE OR SOB AT REST. VERY SOB WITH EXERTION OF ANY KIND AND HR REFLECTS THIS RESTING A LO2 90'S WITH EXERTION HR INTO THE 130'S. A SINGULAR EPISODE OF RVR 150 FOR ABOUT A COUPLE OF SECONDS WHILE IN THE ROOM ASYMPTOMATIC. PATIENT HAS BEEN COOPERATIVE MOST OF THE TIME, DIFFIFCULTY WITH URINAL/HAT. PATIENT AT BEDSIDE MOST OF THE SHIFT. ECHO ORDERED BY HOSPITALIST KRYSTLE IN [facility] THIS EVENING IMPROVED. PATIENT WITH VERY DECREASED APPETITE EATING MAINLY THE LIQUIDS ON TRAY. PLAN OF CARE CONTINUES, NO FURTHER ACUTE CONCERNS.
[2024-11-04 03:20] VITALS: BP 110/85
[2024-11-04 04:12] LABS: Hematocrit 24.5 % (37.0-53.0); Hemoglobin 8.4 g/dL (13.5-17.5); Mean Corpuscular HGB Conc 34.3 g/dL (31.5-36.5); Mean Corpuscular Volume 98 fL (80-100); NRBC ABSOLUTE 0.05 K/mm3 (0.00-0.02); NRBC Auto 8.3 /100 WBC (0.0-0.2); Platelet Count 68 K/mm3 (150-400); RDW Coefficient Variation 21.2 % (11.7-14.2); RDW Standard Deviation 70.1 fL (35.1-46.3)
[2024-11-04 04:32] LABS: Alanine Aminotransfer (ALT/SGP 10.0 U/L (12-78); Albumin, Blood 2.1 g/dL (3.4-5.0); Albumin/Globulin Ratio 0.5 (0.8-1.8); Anion Gap 7.0 mmol/L (3-11); Aspartate Aminotrans (AST/SGOT 14.0 U/L (12-37); Bilirubin, Total 1.2 mg/dL (0.1-1.0); Blood Urea Nitrogen 17.0 mg/dL (8-24); CO2, Blood 26.0 mmol/L (21-32); Calcium, Blood 8.3 mg/dL (8.5-10.1); Chloride, Blood 106.0 mmol/L (98-108); Creatinine, Blood 0.69 mg/dL (0.60-1.20); Globulin, Blood 3.9 g/dL (2.2-4.0); Glucose, Blood 127.0 mg/dL (70-99); Magnesium, Blood 1.8 mg/dL (1.6-2.4); Potassium, Blood 3.9 mmol/L (3.5-5.5); Sodium, Blood 135.0 mmol/L (136-145); Total Protein, Blood 6.0 g/dL (6.4-8.2)
[2024-11-04 05:00] LABS: BASOPHILS ABSOLUTE MAN 0.00 K/mm3 (0.00-0.23); BASOPHILS PERCENT MAN 0 % (0-2); EOSINOPHILS ABSOLUTE MAN 0.02 K/mm3 (0.00-0.68); EOSINOPHILS PERCENT MAN 4 % (0-6); LYMPHOCYTES ABSOLUTE MAN 0.52 K/mm3 (0.84-5.20); LYMPHOCYTES PERCENT MAN 88 % (21-46); MONOCYTES ABSOLUTE MAN 0.00 K/mm3 (0.16-1.47); MONOCYTES PERCENT MAN 0 % (4-13); NEUTROPHILS ABSOLUTE MAN 0.04 K/mm3 (1.96-9.15); SEG NEUTROPHILS PERCENT MAN 8 % (41-73)
--- NOTE | 2024-11-04 05:55 | NUR ---
SHIFT SUMMARY: PT A&OX3 AT START OF SHIFT THEN A&OX1 DISORIENTED TO DATE, PLACE, AND SITUATION FOR MOST OF SHIFT. FREQUENTLY FORGETFUL. PT REEDUCATED TO CALL BEFORE TRYING TO GET OUT OF BED. BED ALARM ON AND PURPOSEFUL HOURLY ROUNDING COMPLETED. EXERTIONAL DYSPNEA NOTED AND HR IN 140S UPON EXERTION. HR AFIB 80S-90S WHILE RESTING. BP STABLE. MAINTAINED >92% ON RA. USES URINAL AT BEDSIDE. SMALL, LOOSE, BROWN BOWEL MOVEMENT. 1 EPISODE OF INCONTINUE. 1 PERSON ASSIST W/ FWW. ATTENDS AND LINEN CHANGE COMPLETED. MEDS GIVEN CRUSHED ONE AT A TIME WITH APPLESAUCE. DAILY WEIGHT COMPLETED. BED IS LOW AND LOCKED. BED ALARM ON AND CALL LIGHT WITHIN REACH. WILL CONTINUE PLAN OF CARE TILL REPORT GIVEN TO DAY NURSE.
[2024-11-04 08:31] VITALS: BP 90/54
--- NOTE | 2024-11-04 10:49 | NUR ---
MET WITH PATIENT AND FAMILY. AND SON AT BEDSIDE. FAMILY HAD DISCUSSED GOC AND HAD DECIDED ON PRUSUING HOSPICE SERVICES. PT HAS A HX OF AML AND IS FOLLOWED BY DR. OWENS, [facility], UPPER I BLEED. PATIENT HAS BEEN INCREASINGLY FATIGUED AT HOME. NEUTROPENIA WITH WBC OF 1.5 WHICH IS NEW. PATIENT DID NOT TOLORATE VIDAZA WELL. NEW LARGE MASS IDENTIFIED IN THE TRANSVERSE COLON. PT HAS A PPS SCORE OF 50%. MYSELF AND CARE COORDINATION REVIEWED WHAT HOSPICE PROVIDES. CC PROVIDED CAREGIVER LIST FOR EXTRA SUPPORT.
[2024-11-04 11:33] VITALS: BP 98/64
[2024-11-04] MEDS ORDERED: DIGOX125 MC1 PO (11:49)
[2024-11-04] MEDS ORDERED: QUETIAPINE FUMA50 M6 PO (11:50)
--- NOTE | 2024-11-04 12:36 | NUR ---
DISCHARGE SUMMARY PT ALERT, ORIENTED X3; CALM AND COOPERATIVE WITH CARE. UP WITH 1 PERSON ASSIST TO BATHROOM. PT DENIES PAIN, CHEST PAIN/PRESSURE, SOB, NAUSEA, DIZZINESS AND NUMB/TINGLING. PT TELE AFIB 80-90'S, BP SOFT, MEDICATED WITH [place]. SPO2 >90% ON RA, BREATHING EVEN AND UNLABORED. ABD SOFT, NOTNENDER, +BT. OTHER VSS. PLANS TO DISCHARGE HOME ON HOSPICE PER CARE MANAGEMENT AND PALLIATEIVE CARE; WHEN ROUNDING WITH DR AVILA, PT SPOUSE EXPRESSED CONCERNS, EDUCATED PT ON HOSPICE AND RESOURCES, CARE MANAGEMENT BACK TO ROOM THIS AFTERNOON TO CLARIFY/ANSWER QUESTIONS. UPDATED DR AVILA, PLACED DISCHARGE ORDER. EDUCATED PT AND SPOUSE ON DISCHARGE INSTRUCTIONS, NEW MEDICATIONS AND HOSPICE. SPOUSE STATES HOSPICE WILL MEET HER AT HOME FOR INTAKE. PT LEFT ROOM VIA WHEELCHAIR AT 1228.
[2024-11-04 14:52] LABS: Stool Occult Blood Guaiac 1 Neg (Neg)
== END 2024-11-04 12:28 | disposition hospice, home (50) | DRG 809 ==
LOC: ER 18:41 → PCU 18:42
PROVIDERS: Emergency Medicine; Internal Medicine; ADMIT Student in an Organized Health Care Education/Training Program
PROC: 30233N1 Transfusion of Nonautologous Red Blood Cells into Peripheral Vein, Percutaneous Approach (ICD-10-PCS; principal; 2024-11-02)
PROC: 3E03329 Introduction of Other Anti-infective into Peripheral Vein, Percutaneous Approach (ICD-10-PCS; 2024-11-02)
DX: D61.810 Antineoplastic chemotherapy induced pancytopenia (principal); C18.9 Malignant neoplasm of colon, unspecified; C92.00 Acute myeloblastic leukemia, not having achieved remission; I48.91 Unspecified atrial fibrillation; T45.1X5A Adverse effect of antineoplastic and immunosuppressive drugs, initial encounter; K63.5 Polyp of colon; Z66 Do not resuscitate; I10 Essential (primary) hypertension; G47.30 Sleep apnea, unspecified; Z87.891 Personal history of nicotine dependence
CPT/HCPCS: 36415; 36430; 71045; 80048; 80053; 80069; 82272; 83605; 83735; 84145; 84439; 84443; 85014; 85018; 85025; 86850; 86900; 86901; 86923; 87040; 92526; 92610; 93005; 93010; 93306; 94762; 96361; 96365; 96366; 96372; 96374; 96375; 96376; 97161; 97165; 97530; 97535; 99285-25; A9270; G0378; J0692; J1650; J3475; J3480; J7030; J7050; J7120; P9016